=== PATIENT | male | born 1960 | race American Indian/Alaskan Native ===

== ENCOUNTER 2016-06-19 14:36 | Emergency (ER) | payer SELFPAY ==
[2016-06-19 14:37] VITALS: BMI 29.1
[2016-06-19 14:42] VITALS: BP 118/71; PULSE 98; TEMP 98.4
[2016-06-19] MEDS ORDERED: TraMADol/Apap 37.5/325 mg Tab PO STA (14:58)
--- NOTE | 2016-06-19 15:01 | ED PDOC ---
Arrival/HPI - General Chief Complaint: Upper Extremity Problem/Injury Time Seen by Provider: 06/19/16 14:54 Historian: Patient - History of Present Illness Narrative History of Present Illness (Text): 06/19/16 14:56 A 56 year old male comes to the emergency department complaining of right shoulder pain for the past two days. Patient reports pain has been constant since it started. He notes pain radiates down the right arm and slightly to the right neck. Patient has been using pain patches and Motrin for the pain with minimal relief. He denies any injuries, chest pain, shortness of breath or any other complaints at this time. Time/Duration: Other (2 days) Symptom Onset: Sudden Symptom Course: Unchanged Quality: Other Activities at Onset: Rest Modifying Factors (Text): minimal relief with medications Context: Home Past Medical History - Provider Review Nursing Documentation Reviewed: Yes - Infectious Disease Hx of Infectious Diseases: None - Tetanus Immunization Tetanus Immunization: Unknown - Past Medical History Past Medical History: No Previous - Psychiatric Hx Depression: No Hx Emotional Abuse: No Hx Physical Abuse: No Hx Substance Use: No - Past Surgical History Past Surgical History: No Previous - Suicidal Assessment Feels Threatened In Home Enviroment: No Family/Social History - Physician Review Nursing Documentation Reviewed: Yes Family/Social History: Unknown Family HX Smoking Status: Current Some Days Smoker Hx Alcohol Use: No Hx Substance Use: No Hx Substance Use Treatment: No Allergies/Home Meds Allergies/Adverse Reactions: Allergies No Known Allergies Allergy (Verified 01/18/12 18:07) Review of Systems - Physician Review All systems were reviewed & negative as marked: Yes - Review of Systems Constitutional: absent: Fevers Respiratory: absent: SOB Cardiovascular: absent: Chest Pain Musculoskeletal: Other (right shoulder pain radiating down the arm and slightly to the right neck) Physical Exam Vital Signs Reviewed: Yes Vital Signs Temp Pulse Resp BP Pulse Ox 06/19/16 15:57 98 H 18 118/71 97 06/19/16 14:38 98.4 F 98 H 16 118/71 99 Temperature: Afebrile Blood Pressure: Normal Pulse: Regular Respiratory Rate: Normal Appearance: Positive for: Well-Appearing, Non-Toxic, Comfortable Pain Distress: None Mental Status: Positive for: Alert and Oriented X 3 - Systems Exam Head: Present: Atraumatic, Normocephalic Pupils: Present: PERRL Conjunctiva: Present: Normal Mouth: Present: Moist Mucous Membranes Neck: Present: Normal Range of Motion Respiratory/Chest: Present: Clear to Auscultation, Good Air Exchange. No: Respiratory Distress, Accessory Muscle Use Cardiovascular: Present: Regular Rate and Rhythm, Normal S1, S2. No: Murmurs Abdomen: Present: Normal Bowel Sounds. No: Tenderness, Distention, Peritoneal Signs Back: Present: Other (mild tenderness with palpation to the right upper posterior trapezius). No: CVA Tenderness Upper Extremity: Present: Normal Inspection. No: Cyanosis, Edema Lower Extremity: Present: Normal Inspection. No: Edema Neurological: Present: GCS=15, CN II-XII Intact, Speech Normal Skin: Present: Warm, Dry, Normal Color. No: Rashes Psychiatric: Present: Alert, Oriented x 3, Normal Insight, Normal Concentration Medical Decision Making ED Course and Treatment: 06/19/16 14:56 Impression: A 56 year old male with right shoulder pain. Differential Diagnosis include but are not limited to: Bursitis vs Sprain vs cervical radiculopathy vs less likely cardiac Plan: -- EKG -- Right shoulder x-ray -- Toradol and Ultracet -- Reassess and disposition Prior Visits: Notes and results from previous visits were reviewed. The patient last presented to the emergency department in 2012. Progress Notes: 06/19/16 16:45 EKG is normal with no cardio-pulmonary symptoms - doubt acs. XR is unremarkable. Reports no improvement with toradol and ultracet and no relief with ibuprofen at home- will d/c on naprosyn and a few tabs of percocet for his pain; no records found in [facility]. He will then need to f/u ortho. - RAD Interpretation Radiology Orders: 06/19/16 14:58 SHOULDER RIGHT [RAD] Stat - Medication Orders Current Medication Orders: Discontinued Medications Ketorolac Tromethamine (Toradol) 60 mg IM STAT STA Stop: 06/19/16 14:59 Last Admin: 06/19/16 15:34 Dose: 60 mg Tramadol/Acetaminophen (Ultracet 37.5/325 Mg) 1 tab PO STAT STA Stop: 06/19/16 14:59 Last Admin: 06/19/16 15:34 Dose: 1 tab - Scribe Statement The provider has reviewed the documentation as recorded by the Uriel Gr Provider Scribe Attestation: All medical record entries made by the Scribe were at my direction and personally dictated by me. I have reviewed the chart and agree that the record accurately reflects my personal performance of the history, physical exam, medical decision making, and the department course for this patient. I have also personally directed, reviewed, and agree with the discharge instructions and disposition. Disposition/Present on Arrival - Present on Arrival Any Indicators Present on Arrival: No History of DVT/PE: No History of Uncontrolled Diabetes: No Urinary Catheter: No History of Decub. Ulcer: No History Surgical Site Infection Following: None - Disposition Have Diagnosis and Disposition been Completed?: Yes Diagnosis: Right shoulder pain Disposition: HOME/ ROUTINE Disposition Time: 16:50 Patient Plan: Discharge Condition: GOOD Discharge Instructions (ExitCare): Shoulder Bursitis (ED), Shoulder Pain (ED) Additional Instructions: Take the medications as prescribed. Follow up with orthopedic clinic. Return to the emergency department if any new concerning symptoms. Prescriptions: Naproxen [Naprosyn] 500 mg PO BID PRN #30 tab PRN Reason: Pain oxyCODONE/Acetaminophen [Percocet 5/325 mg Tab] 1 tab PO Q6H PRN #12 tab PRN Reason: Pain, Severe (8-10) Referrals: Erasmo Luna [Primary Care Provider] - Follow up with primary [facility] [place] [Outside] - Follow up with primary
[2016-06-19 16:02] VITALS: RESP 18; O2SAT 97
--- NOTE | 2016-06-19 16:49 | RAD ---
PROCEDURE: Radiographs of the Right Shoulder HISTORY: R shoulder pain COMPARISON: No prior. FINDINGS: BONES: There is an old fracture deformity of the humeral head. JOINTS: Normal. Glenohumeral and acromioclavicular joints preserved. No osteoarthritis. SOFT TISSUES: Normal. OTHER FINDINGS: None. IMPRESSION: No acute findings
--- NOTE | 2016-06-20 13:07 | CARD ---
APPROVED REPORT EKG Measurement Heart [id number] <Conclusion> Normal sinus rhythm Normal ECG
== END 2016-06-19 17:08 | disposition home or self-care (01) ==
LOC: ED 14:36
DX: M25.511 Pain in right shoulder (principal)
CPT/HCPCS: 73030; 93005; 96372; 99283; J1885